=== PATIENT | female | born 1980 | race African-American/Black ===

== ENCOUNTER 2016-08-11 22:41 | Emergency (ER) | payer OTHER ==
[~2016-08-11] VITALS: Ht 167.6 cm; Wt 91.0 kg
[~2016-08-11 22:41] MED LIST: IOHEXOL-350 100 ML BOTTLE ONE; SODIUM CHLORIDE 0.9% 10ML VIAL ONE
[2016-08-12] MEDS ORDERED: MORPHINE SULFATE 4 MG/ML CPJ (NOT FOR IM USE) IV STA (01:07)
[2016-08-12] MEDS ORDERED: ONDANSETRON HCL 4MG/2ML VIAL IV STA (01:07)
[2016-08-12] MEDS ORDERED: SODIUM CHLORIDE 0.9% 1,000 ML IV ONE (01:07)
[2016-08-12 01:24] LABS: BASOPHILS % 1.3 % (0.0-2.0); DIFFERENTIAL COMMENT 0; EOSINOPHILS % 1.4 % (0.0-5.0); HEMATOCRIT. 32.3 % (36.0-48.0); HEMOGLOBIN. 10.5 g/dL (12.0-16.0); LYMPHOCYTES % 43.9 % (20.0-50.0); MEAN CORPUSCULAR HEMOGLOBIN 24.4 pg (28.0-32.0); MEAN CORPUSCULAR HGB CONC 32.6 g/dL (31.0-37.0); MEAN CORPUSCULAR VOLUME 75.1 fL (81.0-99.0); MEAN PLATELET VOLUME 8.2 fl (7.4-10.4); MONOCYTES % 7.3 % (2.0-8.0); NEUTROPHILS % 46.1 % (40.0-76.0); PLATELET 334 x1000/uL (130-400); RED CELL DISTRIBUTION WIDTH 15.2 % (11.6-14.6); WHITE BLOOD COUNT 7.8 x1000/uL (4.5-11.0)
[2016-08-12 01:29] LABS: PROTHROMBIN TIME 10.4 sec
[2016-08-12 01:39] LABS: ALANINE AMINOTRANSFERASE 29 IU/L (13-61); ALBUMIN 3.7 g/dL (3.4-5.0); ANION GAP 11; CALCIUM 8.8 mg/dL (8.5-10.1); CARBON DIOXIDE 29 mEq/L (21-32); CHLORIDE 106 mEq/L (98-107); INDEX HEMOLYSI 1 (1-3); INDEX ICTERIC 1 (1-4); INDEX LIPEMIC 1 (1-3); TROPONIN I < 0.02 ng/mL (0.00-0.04); UREA NITROGEN BLOOD 11 mg/dL (7-21); eGFR > 60 mL/min (>60)
[2016-08-12 04:20] VITALS: BP 136/90
== END 2016-08-12 05:34 | disposition home or self-care (01) ==
LOC: ER 22:41
DX: R07.89 Other chest pain (principal); R10.13 Epigastric pain; R20.0 Anesthesia of skin; R06.02 Shortness of breath; R51 Headache; I10 Essential (primary) hypertension; Z79.899 Other long term (current) drug therapy; Z98.890 Other specified postprocedural states; Z90.49 Acquired absence of other specified parts of digestive tract
CPT/HCPCS: 36415; 71010; 71275; 80053; 84484; 85025; 85610; 93005; 93971; 96361; 96374; 96375; 99285; A4216; J2270; J2405; J7030; Q9967; Z7610

== ENCOUNTER 2016-08-16 23:21 | Emergency (ER) | payer OTHER ==
[~2016-08-16] VITALS: Ht 170.2 cm; Wt 91.0 kg
[~2016-08-16 23:21] MED LIST changes: +IOHEXOL-300 100 ML BOTTLE ONE; -IOHEXOL-350 100 ML BOTTLE ONE
[2016-08-17] MEDS ORDERED: MORPHINE SULFATE 4 MG/ML CPJ (NOT FOR IM USE) IV ONE (00:15)
[2016-08-17] MEDS ORDERED: ONDANSETRON HCL 4MG/2ML VIAL IV ONE (00:15)
[2016-08-17 00:35] LABS: BASOPHILS % 0.3 % (0.0-2.0); DIFFERENTIAL COMMENT 0; EOSINOPHILS % 1.3 % (0.0-5.0); HEMATOCRIT. 30.5 % (36.0-48.0); HEMOGLOBIN. 9.9 g/dL (12.0-16.0); LYMPHOCYTES % 46.1 % (20.0-50.0); MEAN CORPUSCULAR HEMOGLOBIN 24.2 pg (28.0-32.0); MEAN CORPUSCULAR HGB CONC 32.4 g/dL (31.0-37.0); MEAN CORPUSCULAR VOLUME 74.8 fL (81.0-99.0); MEAN PLATELET VOLUME 8.2 fl (7.4-10.4); MONOCYTES % 8.7 % (2.0-8.0); NEUTROPHILS % 43.6 % (40.0-76.0); PLATELET 310 x1000/uL (130-400); RED BLOOD CELL COUNT 4.08 mill/uL (4.2-5.4); RED CELL DISTRIBUTION WIDTH 15.4 % (11.6-14.6); WHITE BLOOD COUNT 8.3 x1000/uL (4.5-11.0)
[2016-08-17 00:38] LABS: PROTHROMBIN TIME 10.1 sec
[2016-08-17 00:46] LABS: HCG SCREEN NEGATIVE
[2016-08-17 00:47] LABS: ALANINE AMINOTRANSFERASE 31 IU/L (13-61); ALBUMIN 3.6 g/dL (3.4-5.0); ANION GAP 11; CALCIUM 8.6 mg/dL (8.5-10.1); CARBON DIOXIDE 25 mEq/L (21-32); CHLORIDE 107 mEq/L (98-107); INDEX HEMOLYSI 1 (1-3); INDEX ICTERIC 1 (1-4); INDEX LIPEMIC 1 (1-3); NT PRO B-TYPE NATRIURETIC PEP 30 pg/mL (5-125); TROPONIN I < 0.02 ng/mL (0.00-0.04); UREA NITROGEN BLOOD 21 mg/dL (7-21); eGFR > 60 mL/min (>60)
[2016-08-17 03:57] VITALS: BP 122/79
== END 2016-08-17 04:11 | disposition home or self-care (01) ==
LOC: ER 23:22
DX: R07.89 Other chest pain (principal); R10.13 Epigastric pain; J45.909 Unspecified asthma, uncomplicated; I10 Essential (primary) hypertension; F12.10 Cannabis abuse, uncomplicated; Z87.891 Personal history of nicotine dependence; Z90.49 Acquired absence of other specified parts of digestive tract
CPT/HCPCS: 36415; 71010; 74177; 80053; 83880; 84484; 84703; 85025; 85610; 93005; 96374; 96375; 99285; A4216; J2270; J2405; Q9967; Z7610

== ENCOUNTER 2016-11-29 23:02 | Emergency (ER) | payer OTHER, MEDICAID ==
[~2016-11-29] VITALS: Ht 170.2 cm; Wt 78.0 kg
[2016-11-30] MEDS ORDERED: MORPHINE SULFATE 4 MG/ML CPJ (NOT FOR IM USE) IV STA (01:57)
[2016-11-30] MEDS ORDERED: ONDANSETRON HCL 4MG/2ML VIAL IV STA (01:57)
[2016-11-30 02:41] LABS: BASOPHILS % 0.9 % (0.0-2.0); EOSINOPHILS % 0.7 % (0.0-5.0); HEMATOCRIT. 31.9 % (36.0-48.0); HEMOGLOBIN. 10.3 g/dL (12.0-16.0); LYMPHOCYTES % 39.4 % (20.0-50.0); MEAN CORPUSCULAR HEMOGLOBIN 23.9 pg (28.0-32.0); MEAN PLATELET VOLUME 8.6 fl (7.4-10.4); MONOCYTES % 11.4 % (2.0-8.0); NEUTROPHILS % 47.6 % (40.0-76.0); PLATELET 317 x1000/uL (130-400); RED BLOOD CELL COUNT 4.32 mill/uL (4.2-5.4); RED CELL DISTRIBUTION WIDTH 16.5 % (11.6-14.6)
[2016-11-30 02:55] LABS: CARBON DIOXIDE 26 mEq/L (21-32); CHLORIDE 104 mEq/L (98-107); TROPONIN I < 0.02 ng/mL (0.00-0.04)
[2016-11-30 04:30] VITALS: BP 123/80
== END 2016-11-30 05:19 | disposition home or self-care (01) ==
LOC: ER 23:03
DX: R07.89 Other chest pain (principal); I10 Essential (primary) hypertension; J45.909 Unspecified asthma, uncomplicated; F12.10 Cannabis abuse, uncomplicated
CPT/HCPCS: 36415; 71010; 80048; 84484; 85025; 93005; 96374; 96375; 99285; J2270; J2405; Z7610

== ENCOUNTER 2017-07-21 11:48 | Emergency (ER) | payer OTHER ==
[~2017-07-21] VITALS: Ht 170.2 cm; Wt 88.0 kg
[2017-07-21] MEDS ORDERED: ASPIRIN 81MG TABLET PO STA (15:56)
[2017-07-21 17:05] LABS: HEMATOCRIT. 34.8 % (36.0-48.0); HEMOGLOBIN. 11.6 g/dL (12.0-16.0); MEAN CORPUSCULAR HEMOGLOBIN 24.5 pg (28.0-32.0); MEAN CORPUSCULAR VOLUME 73.9 fL (81.0-99.0); MEAN PLATELET VOLUME 7.9 fl (7.4-10.4); PLATELET 423 x1000/uL (130-400); RED BLOOD CELL COUNT 4.71 mill/uL (4.2-5.4); RED CELL DISTRIBUTION WIDTH 16.4 % (11.6-14.6)
[2017-07-21 17:21] LABS: D-DIMER 2.9 mg/L FEU (<0.50); HCG SCREEN NEGATIVE; PARTIAL THROMBOPLASTIN TIME 23.1 sec (23.4-31.0); PROTHROMBIN TIME 10.4 sec (9.4-11.6)
[2017-07-21 17:23] LABS: CHLORIDE 106 mEq/L (98-107)
[2017-07-21 17:46] LABS: PLATELET ESTIMATE SLIGHTLY INCREASED
[2017-07-21] MEDS ORDERED: IOHEXOL-350 100 ML BOTTLE ONE (19:44)
[2017-07-21] MEDS: NITROGLYCERIN 0.4MG TABLET SL SL PRN ×2 (20:21→21:57)
[2017-07-21] MEDS ORDERED: ONDANSETRON HCL 4MG/2ML VIAL IV STA (21:46)
[2017-07-21] MEDS ORDERED: MORPHINE SULFATE 4 MG/ML CPJ (NOT FOR IM USE) IV STA (21:46)
[2017-07-21 22:00] VITALS: BP 135/95
== END 2017-07-21 22:30 | disposition short-term general hospital (02) ==
LOC: ER 13:53
DX: R07.9 Chest pain, unspecified (principal); J45.909 Unspecified asthma, uncomplicated; F17.200 Nicotine dependence, unspecified, uncomplicated; I10 Essential (primary) hypertension; Z79.82 Long term (current) use of aspirin
CPT/HCPCS: 36415; 71045; 71275; 80048; 84484; 84703; 85025; 85379; 85610; 85730; 93005; 96374; 96375; 99285; J2270; J2405; Q9967

== ENCOUNTER 2018-02-22 22:39 | Emergency (ER) | payer OTHER ==
[~2018-02-22] VITALS: Ht 170.2 cm; Wt 91.0 kg
[2018-02-22] MEDS ORDERED: SODIUM CHLORIDE 0.9% 1,000 ML IV ONE (23:39)
[2018-02-22] MEDS ORDERED: KETOROLAC 30MG/ML VIAL IV STA (23:39)
[2018-02-22] MEDS ORDERED: MORPHINE SULFATE 4 MG/ML CPJ (NOT FOR IM USE) IV STA (23:39)
[2018-02-22] MEDS ORDERED: ONDANSETRON HCL 4MG/2ML INJ IV STA (23:39)
[2018-02-22] MEDS ORDERED: METHYLPREDNISOLONE SOD SUCC 125 MG/2 ML VIAL IV STA (23:39)
[2018-02-22] MEDS ORDERED: IPRATROPIUM/ALBUTEROL 0.5-3(2.5)MG/3ML NEB HHN ONE (23:45)
[2018-02-22] MEDS ORDERED: AZITHROMYCIN 500 MG TABLET PO ONE (23:45)
[2018-02-23 00:17] LABS: BASOPHILS % 0.8 % (0.0-2.0); EOSINOPHILS % 1.7 % (0.0-5.0); HEMATOCRIT. 33.1 % (36.0-48.0); HEMOGLOBIN. 10.7 g/dL (12.0-16.0); LYMPHOCYTES % 35.9 % (20.0-50.0); MEAN CORPUSCULAR HEMOGLOBIN 24.6 pg (28.0-32.0); MEAN CORPUSCULAR VOLUME 76.1 fL (81.0-99.0); MEAN PLATELET VOLUME 8.4 fl (7.4-10.4); NEUTROPHILS % 49.6 % (40.0-76.0); PLATELET 325 x1000/uL (130-400); RED BLOOD CELL COUNT 4.34 mill/uL (4.2-5.4); RED CELL DISTRIBUTION WIDTH 15.9 % (11.6-14.6)
[2018-02-23 00:23] LABS: HCG SCREEN NEGATIVE
[2018-02-23 00:24] LABS: CHLORIDE 106 mEq/L (98-107)
[2018-02-23 00:25] LABS: D-DIMER 0.43 mg/L FEU (<0.50); PARTIAL THROMBOPLASTIN TIME 23.1 sec (23.4-31.0); PROTHROMBIN TIME 9.6 sec (9.1-11.1)
[2018-02-23] MEDS ORDERED: MORPHINE SULFATE 4 MG/ML CPJ (NOT FOR IM USE) IV ONE (02:00)
[2018-02-23] MEDS ORDERED: DIAZEPAM 5 MG TABLET PO ONE (02:00)
[2018-02-23 04:10] VITALS: BP 123/77
== END 2018-02-23 04:13 | disposition home or self-care (01) ==
LOC: ER 22:39
DX: R07.89 Other chest pain (principal); M62.838 Other muscle spasm; I10 Essential (primary) hypertension; J45.909 Unspecified asthma, uncomplicated; F12.10 Cannabis abuse, uncomplicated; F17.200 Nicotine dependence, unspecified, uncomplicated
CPT/HCPCS: 36415; 71045; 80053; 83880; 84484; 84703; 85025; 85379; 85610; 85730; 93005; 94640; 96374; 96375; 96376; 99285; J1885; J2270; J2405; J2930; J7030; J7620; Z7610

== ENCOUNTER 2018-05-27 17:33 | Emergency (ER) | payer MEDICAID, OTHER ==
[~2018-05-27] VITALS: Ht 172.7 cm; Wt 95.0 kg
[2018-05-27 22:09] LABS: BASOPHILS % 0.9 % (0.0-2.0); EOSINOPHILS % 1.1 % (0.0-5.0); HEMATOCRIT. 35.6 % (36.0-48.0); HEMOGLOBIN. 11.5 g/dL (12.0-16.0); LYMPHOCYTES % 37.8 % (20.0-50.0); MEAN CORPUSCULAR HEMOGLOBIN 24.4 pg (28.0-32.0); MEAN CORPUSCULAR VOLUME 75.7 fL (81.0-99.0); MEAN PLATELET VOLUME 8.7 fl (7.4-10.4); MONOCYTES % 6.8 % (2.0-8.0); NEUTROPHILS % 53.4 % (40.0-76.0); PLATELET 390 x1000/uL (130-400); RED CELL DISTRIBUTION WIDTH 15.9 % (11.6-14.6)
[2018-05-27 22:15] LABS: CHLORIDE 105 mEq/L (98-107)
[2018-05-27 22:16] LABS: CLARITY URINE CLEAR (CLEAR); COLOR URINE YELLOW (YELLOW); KETONES URINE NEGATIVE (NEGATIVE); LEUKOCYTE ESTERASE URINE NEGATIVE (NEGATIVE); NITRITE URINE NEGATIVE (NEGATIVE); OCCULT BLOOD URINE 1+ (NEGATIVE); PH URINE 6.5 (4.5-8.0); PROTEIN URINE NEGATIVE (NEGATIVE); SPECIFIC GRAVITY URINE 1.014 (1.005-1.030); UROBILINOGEN URINE 0.2 E.U./dL (0.2-1.0)
[2018-05-27 22:45] VITALS: BP 148/92
== END 2018-05-27 23:40 | disposition home or self-care (01) ==
LOC: ER 23:38
DX: R07.89 Other chest pain (principal); J45.909 Unspecified asthma, uncomplicated; I10 Essential (primary) hypertension
CPT/HCPCS: 36415; 70360; 71045; 81025; 84484; 93005; 99284

== ENCOUNTER 2018-07-01 02:56 | Emergency (ER) | payer MEDICAID ==
[~2018-07-01] VITALS: Ht 170.2 cm; Wt 84.0 kg
[2018-07-01] MEDS ORDERED: ONDANSETRON 4MG ODT PO ONE (07:00)
[2018-07-01] MEDS ORDERED: FAMOTIDINE 20MG TABLET PO ONE (07:00)
[2018-07-01] MEDS ORDERED: MAGNESIUM/ALUMINUM HYDROXIDE/SIMETHICONE 30ML UDC PO ONE (07:00)
[2018-07-01] MEDS ORDERED: ASPIRIN 325MG TABLET PO ONE (07:00)
[2018-07-01 07:26] LABS: BASOPHILS % 0.9 % (0.0-2.0); EOSINOPHILS % 0.8 % (0.0-5.0); HEMATOCRIT. 34.3 % (36.0-48.0); LYMPHOCYTES % 42.5 % (20.0-50.0); MEAN CORPUSCULAR HEMOGLOBIN 24.2 pg (28.0-32.0); MEAN CORPUSCULAR VOLUME 75.3 fL (81.0-99.0); MEAN PLATELET VOLUME 9.1 fl (7.4-10.4); MONOCYTES % 12.2 % (2.0-8.0); NEUTROPHILS % 43.6 % (40.0-76.0); PLATELET 345 x1000/uL (130-400); RED BLOOD CELL COUNT 4.55 mill/uL (4.2-5.4); RED CELL DISTRIBUTION WIDTH 15.5 % (11.6-14.6)
[2018-07-01 08:18] LABS: PROTHROMBIN TIME 9.9 sec (9.1-11.1)
[2018-07-01 08:23] LABS: CHLORIDE 108 mEq/L (98-107)
[2018-07-01 10:09] VITALS: BP 132/84
== END 2018-07-01 10:27 | disposition home or self-care (01) ==
LOC: ER 02:56
DX: R07.9 Chest pain, unspecified (principal); J45.909 Unspecified asthma, uncomplicated; I10 Essential (primary) hypertension
CPT/HCPCS: 36415; 71045; 80053; 81025; 83690; 84484; 85025; 85610; 93005; 99284; Q0162

== ENCOUNTER 2019-02-06 01:46 | Emergency (ER) | payer MEDICAID, OTHER ==
[~2019-02-06] VITALS: Ht 170.2 cm; Wt 94.0 kg
[2019-02-06 02:05] VITALS: BP 173/93
== END 2019-02-06 04:55 | disposition left against medical advice (07) ==
LOC: ER 01:46
DX: R07.89 Other chest pain (principal); Z53.21 Procedure and treatment not carried out due to patient leaving prior to being seen by health care provider

== ENCOUNTER 2019-06-05 22:39 | Emergency (ER) | payer OTHER, MEDICAID ==
[~2019-06-05] VITALS: Ht 170.2 cm; Wt 96.0 kg
[2019-06-05] MEDS ORDERED: KETOROLAC 60MG/2ML VIAL IM ONE (23:15)
[2019-06-05] MEDS ORDERED: MORPHINE SULFATE 10 MG/ML CPJ IM ONE (23:15)
[2019-06-06 02:55] VITALS: BP 131/68
== END 2019-06-06 02:00 | disposition home or self-care (01) ==
LOC: ER 22:39
DX: S97.81XA Crushing injury of right foot, initial encounter (principal); S92.591A Other fracture of right lesser toe(s), initial encounter for closed fracture; I10 Essential (primary) hypertension; J45.909 Unspecified asthma, uncomplicated; V03.00XA Pedestrian on foot injured in collision with car, pick-up truck or van in nontraffic accident, initial encounter; Y93.89 Activity, other specified; Y92.488 Other paved roadways as the place of occurrence of the external cause
CPT/HCPCS: 29515; 73630; 96372; 99283; J1885; J2270

== ENCOUNTER 2022-03-12 21:18 | Emergency (ER) | payer MEDICAID, OTHER ==
[~2022-03-12] VITALS: Ht 170.2 cm; Wt 95.0 kg
[2022-03-12] MEDS ORDERED: HYDROCODONE/ACETAMINOPHEN 5/325MG TABLET PO ONE (23:45)
[2022-03-12 23:51] VITALS: BP 134/93
[2022-03-13] MEDS ORDERED: NAPR-1176 MT (00:42)
[2022-03-13] MEDS ORDERED: CYCL10TA21 MT (00:42)
== END 2022-03-13 01:17 | disposition home or self-care (01) ==
LOC: ER 21:18
DX: S90.32XA Contusion of left foot, initial encounter (principal); M79.662 Pain in left lower leg; M79.661 Pain in right lower leg; I10 Essential (primary) hypertension; J45.909 Unspecified asthma, uncomplicated; X58.XXXA Exposure to other specified factors, initial encounter; Y93.9 Activity, unspecified; Y92.9 Unspecified place or not applicable
CPT/HCPCS: 73630; 93970; 99284

== ENCOUNTER 2022-03-23 22:46 | Emergency (ER) | payer MEDICAID ==
[~2022-03-23] VITALS: Ht 170.2 cm; Wt 96.2 kg
[~2022-03-23 22:46] MED LIST changes: +CYCL10TA21 MT; -IOHEXOL-300 100 ML BOTTLE ONE; +NAPR-1176 MT; -SODIUM CHLORIDE 0.9% 10ML VIAL ONE
[2022-03-23 22:54] VITALS: BP 161/106
[2022-03-24 01:01] LABS: BASOPHILS % 1.5 % (0.0-2.0); EOSINOPHILS % 0.6 % (0.0-5.0); HEMATOCRIT. 31.9 % (36.0-48.0); HEMOGLOBIN. 10.2 g/dL (12.0-16.0); LYMPHOCYTES % 36.8 % (20.0-50.0); MEAN CORPUSCULAR HEMOGLOBIN 23.8 pg (28.0-32.0); MEAN CORPUSCULAR VOLUME 74.3 fL (81.0-99.0); MEAN PLATELET VOLUME 8.4 fl (7.4-10.4); MONOCYTES % 6.5 % (2.0-8.0); NEUTROPHILS % 54.6 % (40.0-76.0); PLATELET 460 x1000/uL (130-400); RED CELL DISTRIBUTION WIDTH 16.3 % (11.6-14.6)
[2022-03-24 01:20] LABS: CHLORIDE 106 mEq/L (98-107)
[2022-03-24] MEDS ORDERED: AZIT250T12 MT (01:48)
[2022-03-24] MEDS ORDERED: IBUP-2029 MT (01:48)
== END 2022-03-24 04:04 | disposition home or self-care (01) ==
LOC: ER 22:46
DX: R07.89 Other chest pain (principal); J18.9 Pneumonia, unspecified organism; I10 Essential (primary) hypertension; J45.909 Unspecified asthma, uncomplicated; F17.210 Nicotine dependence, cigarettes, uncomplicated; Z71.6 Tobacco abuse counseling
CPT/HCPCS: 36415; 71045; 80053; 83880; 84484; 85025; 93005; 99285; 99406

== ENCOUNTER 2022-08-20 03:03 | Emergency (ER) | payer MEDICAID ==
[~2022-08-20] VITALS: Ht 170.2 cm; Wt 94.0 kg
[~2022-08-20 03:03] MED LIST changes: +AZIT250T12 MT; +IBUP-2029 MT
[2022-08-20] MEDS ORDERED: SODIUM CHLORIDE 0.9% 1,000 ML IV ONE (03:30)
[2022-08-20] MEDS ORDERED: ONDANSETRON HCL 4MG/2ML INJ IV ONE (03:30)
[2022-08-20] MEDS ORDERED: MORPHINE SULFATE 4 MG/ML CPJ (NOT FOR IM USE) IV ONE (03:30)
[2022-08-20 03:40] LABS: BASOPHILS % 0.6 % (0.0-2.0); EOSINOPHILS % 0.6 % (0.0-5.0); HEMATOCRIT. 29.8 % (36.0-48.0); HEMOGLOBIN. 9.6 g/dL (12.0-16.0); LYMPHOCYTES % 15.5 % (20.0-50.0); MEAN CORPUSCULAR HEMOGLOBIN 23.4 pg (28.0-32.0); MEAN CORPUSCULAR VOLUME 72.4 fL (81.0-99.0); MONOCYTES % 5.6 % (2.0-8.0); NEUTROPHILS % 77.7 % (40.0-76.0); PLATELET 437 x1000/uL (130-400); RED BLOOD CELL COUNT 4.12 mill/uL (4.2-5.4); RED CELL DISTRIBUTION WIDTH 17.1 % (11.6-14.6)
[2022-08-20 03:41] LABS: CHLORIDE 109 mEq/L (98-107)
[2022-08-20 04:02] LABS: HCG SCREEN NEGATIVE
[2022-08-20] MEDS ORDERED: AMOXICILLIN/POTASSIUM CLAVULANATE 875/125MG TAB PO ONE (05:00)
[2022-08-20] MEDS ORDERED: HYDR-4001 MT (05:05)
[2022-08-20] MEDS ORDERED: IBUP-2029 MT (05:05)
[2022-08-20] MEDS ORDERED: ONDA4TAB50 MT (05:05)
[2022-08-20] MEDS ORDERED: AMOX1TAB16 MT (05:05)
[2022-08-20 05:19] VITALS: BP 124/75
== END 2022-08-20 05:20 | disposition home or self-care (01) ==
LOC: ER 03:03
DX: K52.9 Noninfective gastroenteritis and colitis, unspecified (principal); D64.9 Anemia, unspecified; I10 Essential (primary) hypertension; J45.909 Unspecified asthma, uncomplicated; Z13.9 Encounter for screening, unspecified
CPT/HCPCS: 36415; 74176; 80053; 83690; 84484; 84703; 85025; 93005; 96361; 96374; 96375; 99285; J2270; J2405; J7030; Z7610

== ENCOUNTER 2022-10-09 20:53 | Emergency (ER) | payer MEDICAID ==
[~2022-10-09] VITALS: Ht 170.2 cm; Wt 92.0 kg
[~2022-10-09 20:53] MED LIST changes: +AMOX1TAB16 MT; +HYDR-4001 MT; +ONDA4TAB50 MT
[2022-10-09] MEDS ORDERED: MORPHINE SULFATE 4 MG/ML CPJ (NOT FOR IM USE) IV STA (21:43)
[2022-10-09] MEDS ORDERED: ONDANSETRON HCL 4MG/2ML INJ IV STA (21:43)
[2022-10-09] MEDS ORDERED: SODIUM CHLORIDE 0.9% 1,000 ML IV ONE (21:45)
[2022-10-09 22:05] LABS: BASOPHILS % 0.8 % (0.0-2.0); EOSINOPHILS % 0.1 % (0.0-5.0); HEMOGLOBIN. 10.2 g/dL (12.0-16.0); LYMPHOCYTES % 17.2 % (20.0-50.0); MEAN CORPUSCULAR HEMOGLOBIN 22.8 pg (28.0-32.0); MEAN CORPUSCULAR VOLUME 73.9 fL (81.0-99.0); MEAN PLATELET VOLUME 8.3 fl (7.4-10.4); MONOCYTES % 4.5 % (2.0-8.0); NEUTROPHILS % 77.4 % (40.0-76.0); PLATELET 484 x1000/uL (130-400); RED BLOOD CELL COUNT 4.47 mill/uL (4.2-5.4); RED CELL DISTRIBUTION WIDTH 17.4 % (11.6-14.6)
[2022-10-09 22:11] LABS: CHLORIDE 109 mEq/L (98-107)
[2022-10-09 22:20] LABS: HCG SCREEN NEGATIVE
[2022-10-10] MEDS ORDERED: MORPHINE SULFATE 4 MG/ML CPJ (NOT FOR IM USE) IV ONE (01:45)
[2022-10-10] MEDS ORDERED: MAG355OR21 MT (03:00)
[2022-10-10 03:10] VITALS: BP 119/63
== END 2022-10-10 03:11 | disposition home or self-care (01) ==
LOC: ER 20:53
DX: R10.13 Epigastric pain (principal); F12.10 Cannabis abuse, uncomplicated; J45.909 Unspecified asthma, uncomplicated; I10 Essential (primary) hypertension; Z79.899 Other long term (current) drug therapy
CPT/HCPCS: 36415; 74176; 80053; 83690; 84703; 85025; 93005; 96361; 96374; 96375; 96376; 99285; J2270; J2405; J7030; Z7610

== ENCOUNTER 2022-12-27 07:06 | Emergency (ER) | payer MEDICAID ==
[~2022-12-27] VITALS: Ht 165.1 cm; Wt 75.0 kg
[~2022-12-27 07:06] MED LIST changes: +MAG355OR21 MT
[2022-12-27 07:10] VITALS: BP 157/98; PULSE 98; RESP 18; TEMP 98.3; O2SAT 100
[2022-12-27] MEDS ORDERED: DIPH50CA41 MT (07:59)
[2022-12-27] MEDS ORDERED: CLIN-194 MT (07:59)
[2022-12-27] MEDS ORDERED: DIPHENHYDRAMINE 50MG CAPSULE PO ONE (08:00)
[2022-12-27] MEDS ORDERED: DEXAMETHASONE 4MG/ML 1ML VIAL IM ONE (08:00)
== END 2022-12-27 10:33 | disposition home or self-care (01) ==
LOC: ER 08:10
DX: T78.40XA Allergy, unspecified, initial encounter (principal); K04.7 Periapical abscess without sinus; X58.XXXA Exposure to other specified factors, initial encounter
CPT/HCPCS: 99283; 96372; Q0163; J1100

== ENCOUNTER 2023-01-17 22:28 | Emergency (ER) | payer MEDICAID ==
[~2023-01-17 22:28] MED LIST changes: +CLIN-194 MT; +DIPH50CA41 MT
[2023-01-17 22:30] VITALS: PULSE 95
[2023-01-18] MEDS ORDERED: ACETAMINOPHEN 325MG TABLET PO ONE (00:30)
[2023-01-18] MEDS ORDERED: TOPUD MT (05:34)
[2023-01-18] MEDS ORDERED: IBUP-2029 MT (05:34)
== END 2023-01-18 06:15 | disposition home or self-care (01) ==
LOC: ER 22:28
DX: M25.512 Pain in left shoulder (principal); J45.909 Unspecified asthma, uncomplicated; I10 Essential (primary) hypertension; F12.90 Cannabis use, unspecified, uncomplicated
CPT/HCPCS: 73030; 99283